=== PATIENT | male | born 1990 | race Caucasian/White ===

== ENCOUNTER 2017-02-06 11:52 | Emergency (ER) | payer OTHER ==
[2017-02-06 12:25] VITALS: TEMP 98.2; O2SAT 99
--- NOTE | 2017-02-06 13:11 | RAD ---
Left knee three views History: Pain. Comparison: None available. Findings: Mild medial compartment joint space narrowing of the femorotibial joint space. No evidence for acute displaced fracture or dislocation. Small suprapatellar joint effusion. Impression: Mild medial compartment joint space narrowing of the femorotibial joint space. No evidence for acute displaced fracture or dislocation. Small suprapatellar joint effusion. If pain persists, consider MRI.
--- NOTE | 2017-02-06 13:20 | C.PDOC ---
History Of Present Illness 26 year old male presents to the ED for evaluation of discomfort to his left knee which began around 5 days ago. 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 Patient reports subjective pressure and tightness but denies any visible swelling. Patient also denies direct trauma/injury to affected area, recent falls, or extremity numbness/weakness. Time Seen by Provider: 02/06/17 12:34 Chief Complaint (Nursing): Lower Extremity Problem/Injury History Per: Patient History/Exam Limitations: no limitations Onset/Duration Of Symptoms: Days (5) Current Symptoms Are (Timing): Still Present Additional History Per: Patient - Knee Description Of Injury: denies: Fell, Struck With Object, Struck Against Object, Twisted, Laceration Past Medical History Reviewed: Historical Data, Nursing Documentation, Vital Signs Vital Signs: Last Vital Signs Temp 98.2 F 02/06/17 13:55 Pulse 94 H 02/06/17 13:55 Resp 18 02/06/17 13:55 BP 129/84 02/06/17 13:55 Pulse Ox 99 02/06/17 19:53 - Medical History PMH: Back Problems (SPINAL CYST SX) Surgical History: No Surg Hx Family History: States: Unknown Family Hx - Social History Hx Tobacco Use: Yes Hx Alcohol Use: Yes Hx Substance Use: Yes - Immunization History Hx Tetanus Toxoid Vaccination: No Hx Influenza Vaccination: No Hx Pneumococcal Vaccination: No Review Of Systems Musculoskeletal: Positive for: Other (left knee discomfort with subjective pressure/tightness ) Neurological: Negative for: Weakness, Numbness Physical Exam - Physical Exam Appears: Non-toxic, No Acute Distress Skin: Normal Color, Warm, Dry, No Other (warmth to left lower extremity ) Extremity: Normal ROM, No Tenderness, No Calf Tenderness, Capillary Refill ( less than 2 seconds ), No Deformity, No Swelling Pulses: Left Dorsalis Pedis: Normal Neurological/Psych: Normal Speech, Normal Cognition, Normal Motor, Normal Sensation Gait: Steady ED Course And Treatment O2 Sat by Pulse Oximetry: 99 (on RA) Pulse Ox Interpretation: Normal - Other Rad left knee XR X-Ray: Interpreted by Me, Viewed By Me, Read By Radiologist Interpretation: Left knee three views. History: Pain. Comparison: None available. Findings: Mild medial compartment joint space narrowing of the femorotibial joint space. No evidence for acute displaced fracture or dislocation. Small suprapatellar joint effusion. Impression: Mild medial compartment joint space narrowing of the femorotibial joint space. No evidence for acute displaced fracture or dislocation. Small suprapatellar joint effusion. If pain persists, consider MRI. Progress Note: Left knee XR ordered, results show evidence of effusion. Patient received Motrin PO. Knee brace applied to left knee by CP and checked by me. On reassessment, patient is resting comfortably, showing no signs of distress and reports an improvement in his pain. Patient is stable for discharge and is advised to follow up with orthopedic care within 1-2 days for further evaluation. Reassessment Condition: Improved Disposition - Disposition Referrals: Scot Srinivasan III, MD [Staff Provider] - Disposition: HOME/ ROUTINE Disposition Time: 13:18 Condition: STABLE Additional Instructions: Follow up with PMD and Orthopedist within 1-2 days. Return to Ed if feel worse. Prescriptions: Ibuprofen [Motrin Tab] 600 mg PO Q8 #30 tab Instructions: Knee Pain (ED) Forms: [employer] (I[place]ic), Work Excuse - Clinical Impression Clinical Impression: Knee pain - PA / HISTOLOGY TECHNICIAN / Resident Statement MD/DO has reviewed & agrees with the documentation as recorded. - Scribe Statement The provider has reviewed the documentation as recorded by the Scribe (Radha Cage) All medical record entries made by the Scribe were at my direction and personally dictated by me. I have reviewed the chart and agree that the record accurately reflects my personal performance of the history, physical exam, medical decision making, and the department course for this patient. I have also personally directed, reviewed, and agree with the discharge instructions and disposition.
[2017-02-06 13:56] VITALS: BP 129/84; PULSE 94; RESP 18
== END 2017-02-06 13:56 | disposition home or self-care (01) ==
LOC: C.ER 11:52
DX: M25.562 Pain in left knee (principal)